=== PATIENT | male | born 1960 | race Caucasian/White ===

== ENCOUNTER 2021-10-24 16:22 | Emergency (ER) | payer MEDICARE, OTHER ==
[~2021-10-24] VITALS: Ht 175.3 cm; Wt 108.4 kg
[~2021-10-24 16:22] MED LIST: ASPIRIN CHEW81 MG PO; ASPIRIN ENTERI325 MG PO; GLIMEPIRIDE2 MG PO; HYDROCODON-ACE1 EA11 PO; JANUVIA100 MG PO; KEFLEX250 MG PO; LASIX40 MG PO; LISINOPRIL10 MG PO; LOVASTATIN10 MG PO; LOVASTATIN40 MG PO; METFORMIN HCL500 MG PO; POTASSIUM CHLO10 ME1 PO; SERTRALINE HCL50 MG PO; ULTRAM50 MG PO; WARFARIN SODIUM1 MG PO
[2021-10-24] MEDS ORDERED: TRAZODONE HCL100 MG PO (17:57)
[2021-10-24] MEDS ORDERED: HYDROCODONE/APAP 5MG-325MG TAB PO ONE (22:15)
[2021-10-24] MEDS ORDERED: HYDROCODONE/APAP 5MG-325MG TAB ONE (22:18)
[2021-10-24] MEDS ORDERED: HYDROCODON-ACE1 EAC9 PO (22:36)
== END 2021-10-24 22:54 | disposition home or self-care (01) ==
LOC: FSED 16:51
DX: S82.144A Nondisplaced bicondylar fracture of right tibia, initial encounter for closed fracture (principal); W01.0XXA Fall on same level from slipping, tripping and stumbling without subsequent striking against object, initial encounter; Y93.01 Activity, walking, marching and hiking; Y92.007 Garden or yard of unspecified non-institutional (private) residence as the place of occurrence of the external cause; I10 Essential (primary) hypertension; E11.9 Type 2 diabetes mellitus without complications; E78.5 Hyperlipidemia, unspecified; K21.9 Gastro-esophageal reflux disease without esophagitis; F41.9 Anxiety disorder, unspecified; G40.909 Epilepsy, unspecified, not intractable, without status epilepticus; Z86.14 Personal history of Methicillin resistant Staphylococcus aureus infection
CPT/HCPCS: 99284

== ENCOUNTER → 2022-02-03 | Outpatient (RCR) | payer MEDICARE ==
[~2022-02-03] MED LIST changes: +HYDROCODON-ACE1 EAC9 PO; +TRAZODONE HCL100 MG PO
== END ==
LOC: PT 12:25
PROVIDERS: ATTEND Orthopaedic Surgery
DX: S82.292A Other fracture of shaft of left tibia, initial encounter for closed fracture (principal)

== ENCOUNTER → 2022-03-05 | Outpatient (RCR) | payer MEDICARE | LOC: PT 02-05 12:47 | PROVIDERS: ATTEND Orthopaedic Surgery | DX: S82.292A Other fracture of shaft of left tibia, initial encounter for closed fracture (principal) | CPT/HCPCS: 97139 ==

== ENCOUNTER 2022-03-19 12:53 | Outpatient (RCR) | payer MEDICARE | END 2022-04-05 | LOC: PT 12:53 | PROVIDERS: ATTEND Orthopaedic Surgery | DX: S82.192A Other fracture of upper end of left tibia, initial encounter for closed fracture (principal) ==

== ENCOUNTER 2025-01-12 18:23 | Inpatient (IN) | payer BC, MEDICARE ==
[~2025-01-12] VITALS: Ht 175.3 cm; Wt 99.0 kg
[2025-01-12] MEDS ORDERED: CEPHALEXIN500 MG PO (18:41)
[2025-01-12] MEDS ORDERED: FARXIGA10 MG (18:41)
[2025-01-12] MEDS ORDERED: BENICAR5 MG PO (18:41)
[2025-01-12] MEDS ORDERED: LOPID600 MG PO (18:41)
[2025-01-12] MEDS: SODIUM CHLORIDE 0.9% 500ML 500 ML IV STA (19:06)
[2025-01-12] MEDS: Vancomycin IV 1 GM in SODIUM CHLORIDE 0.9% 250ML 250 ML IV ONE (19:07)
[2025-01-12 19:47] LABS: BASOPHILS % 0.2 % (0.0-1.0); EOSINOPHILS # (AUTO) 0.1 (0.0-0.4); EOSINOPHILS % 1.2 % (0.0-6.0); HEMATOCRIT 38.9 % (38.2-49.6); HEMOGLOBIN 12.7 g/dL (14.0-18.0); LYMPHOCYTES # (AUTO) 0.8 (1.0-3.2); LYMPHOCYTES % 8.2 % (18.0-39.1); MEAN CORPUSCULAR HEMOGLOBIN 29.3 pg (28-32); MEAN CORPUSCULAR HGB CONC 32.6 g/dL (31-35); MEAN CORPUSCULAR VOLUME 89.8 fL (81-99); MONOCYTES # (AUTO) 1.2 (0.2-0.8); MONOCYTES % 11.7 % (4.4-11.3); NEUTROPHILS % 78.1 % (38.7-80.0); PLATELET COUNT 185 x10e3/uL (140-360); RED BLOOD COUNT 4.33 x10e6/uL (4.3-5.7); RED CELL DISTRIBUTION WIDTH 13.1 % (11.7-14.4); WHITE BLOOD COUNT 10.21 x10e3/uL (4.8-10.8)
[2025-01-12 20:05] LABS: ALBUMIN 2.8 g/dL (3.5-5.0); ALBUMIN/GLOBULIN RATIO 0.6 (0.8-2.0); ANION GAP 25.1 mmol/L (8-16); BILIRUBIN,TOTAL 0.8 mg/dL (0.2-1.2); CALCIUM 9.4 mg/dL (8.4-10.2); CREATININE, SERUM 1.95 mg/dL (0.72-1.25); POTASSIUM 5.1 mmol/L (3.5-5.1); TOTAL PROTEIN 7.4 g/dL (6.5-8.1)
[2025-01-12] MEDS: INSULIN REGULAR, HUMAN 100 UNIT/1 ML IV ONE (20:54)
[2025-01-12] MEDS: SODIUM CHLORIDE 0.9% 1000ML 1,000 ML IV STA (20:55)
[2025-01-12 20:58] VITALS: TEMP 98.3
[2025-01-12] MEDS ORDERED: CLONIDINE HCL 0.2 MG TAB PO PRN (22:45)
[2025-01-12] MEDS ORDERED: HYDRALAZINE HCL 20 MG/ML VIAL IV PRN (22:45)
[2025-01-12] MEDS ORDERED: DEXTROSE 50% SYRINGE 50 ML IV PRN (22:45)
[2025-01-12] MEDS ORDERED: DIPHENHYDRAMINE HCL INJ 50 MG/ML VIAL IV PRN (22:45)
[2025-01-12] MEDS ORDERED: ONDANSETRON HCL INJ 2MG/ML 2ML 2 MG/ML VIAL IV PRN (22:45)
[2025-01-12] MEDS ORDERED: ZOLPIDEM TARTRATE 5 MG TAB PO PRN (22:45)
[2025-01-12 22:56] VITALS: PULSE 89; RESP 18
[2025-01-13] VITALS (11 sets, daily range): BP systolic 103–144; BP diastolic 58–79; PULSE 81–92; RESP 16–20; TEMP 97.6–98.8; O2SAT 94–100
[2025-01-13] MEDS: SODIUM CHLORIDE 0.45% 1,000 ML IV SCH (00:55)
[2025-01-13] MEDS ORDERED: TIZANIDINE HCL4 M1 PO (04:23)
[2025-01-13] MEDS ORDERED: Vancomycin IV 1 GM in SODIUM CHLORIDE 0.9% 250ML 250 ML IV SCH (05:00)
[2025-01-13 06:41] LABS: BASOPHILS % 0.4 % (0.0-1.0); EOSINOPHILS # (AUTO) 0.1 (0.0-0.4); EOSINOPHILS % 1.5 % (0.0-6.0); HEMATOCRIT 33.2 % (38.2-49.6); HEMOGLOBIN 10.8 g/dL (14.0-18.0); LYMPHOCYTES # (AUTO) 1.1 (1.0-3.2); LYMPHOCYTES % 14.2 % (18.0-39.1); MEAN CORPUSCULAR HEMOGLOBIN 29.5 pg (28-32); MEAN CORPUSCULAR HGB CONC 32.5 g/dL (31-35); MEAN CORPUSCULAR VOLUME 90.7 fL (81-99); MONOCYTES # (AUTO) 0.8 (0.2-0.8); MONOCYTES % 10.3 % (4.4-11.3); NEUTROPHILS # (AUTO) 5.5 (2.1-6.9); NEUTROPHILS % 72.8 % (38.7-80.0); PLATELET COUNT 139 x10e3/uL (140-360); RED BLOOD COUNT 3.66 x10e6/uL (4.3-5.7); RED CELL DISTRIBUTION WIDTH 13.2 % (11.7-14.4); WHITE BLOOD COUNT 7.58 x10e3/uL (4.8-10.8)
[2025-01-13] MEDS ORDERED: ALBUTEROL/IPRATROPIUM 3 ML NEB NEB PRN (07:30)
[2025-01-13] MEDS ORDERED: MELATONIN 3 MG TAB PO PRN (07:30)
[2025-01-13] MEDS ORDERED: FAMOTIDINE 20 MG TAB PO SCH (07:30)
[2025-01-13] MEDS ORDERED: METOPROLOL TARTRATE INJ 1 MG/ML VIAL IV PRN (07:30)
[2025-01-13 07:33] LABS: ANION GAP 19.9 mmol/L (8-16); CALCIUM 8.5 mg/dL (8.4-10.2); CREATININE, SERUM 1.72 mg/dL (0.72-1.25); POTASSIUM 4.9 mmol/L (3.5-5.1)
[2025-01-13] MEDS: INSULIN REGULAR, HUMAN 100 UNIT/1 ML SQ SCH (08:04)
[2025-01-13] MEDS: SERTRALINE HCL 100 MG TAB PO SCH (08:05)
[2025-01-13] MEDS: FAMOTIDINE 20 MG TAB PO ONE (08:05)
[2025-01-13] MEDS: Vancomycin IV 1 GM in SODIUM CHLORIDE 0.9% 250ML 250 ML IV SCH ×2 (08:05→19:45)
[2025-01-13] MEDS ORDERED: ENOXAPARIN 30 MG/0.3 ML SYR SC SCH (09:00)
[2025-01-13] MEDS: ENOXAPARIN 30 MG/0.3 ML SYR SC SCH (17:06)
[2025-01-13] MEDS: SIMVASTATIN 40 MG TAB PO SCH (19:46)
[2025-01-13] MEDS: ACETAMINOPHEN 325 MG TAB PO PRN (22:56)
[2025-01-14] VITALS (13 sets, daily range): BP systolic 105–129; BP diastolic 58–79; PULSE 69–88; RESP 17–18; TEMP 97.2–100.3; O2SAT 94–100
[2025-01-14 07:23] LABS: BASOPHILS % 0.3 % (0.0-1.0); EOSINOPHILS # (AUTO) 0.1 (0.0-0.4); EOSINOPHILS % 2.3 % (0.0-6.0); HEMATOCRIT 36.7 % (38.2-49.6); HEMOGLOBIN 11.7 g/dL (14.0-18.0); LYMPHOCYTES % 15.9 % (18.0-39.1); MEAN CORPUSCULAR HEMOGLOBIN 29.2 pg (28-32); MEAN CORPUSCULAR HGB CONC 31.9 g/dL (31-35); MEAN CORPUSCULAR VOLUME 91.5 fL (81-99); MONOCYTES # (AUTO) 0.7 (0.2-0.8); MONOCYTES % 12.4 % (4.4-11.3); NEUTROPHILS # (AUTO) 4.1 (2.1-6.9); NEUTROPHILS % 68.4 % (38.7-80.0); PLATELET COUNT 140 x10e3/uL (140-360); RED BLOOD COUNT 4.01 x10e6/uL (4.3-5.7); WHITE BLOOD COUNT 5.96 x10e3/uL (4.8-10.8)
[2025-01-14 07:36] LABS: ANION GAP 15.8 mmol/L (8-16); CALCIUM 8.6 mg/dL (8.4-10.2); CREATININE, SERUM 1.31 mg/dL (0.72-1.25); POTASSIUM 3.8 mmol/L (3.5-5.1)
[2025-01-14] MEDS: FAMOTIDINE 20 MG TAB PO SCH ×2 (08:05→16:12)
[2025-01-14] MEDS ORDERED: HYDROCODONE/APAP 10MG-325MG TAB PO PRN (15:30)
[2025-01-14] MEDS: INSULIN REGULAR, HUMAN 100 UNIT/1 ML SQ SCH ×2 (16:10→16:12)
[2025-01-14] MEDS: GABAPENTIN 100 MG CAP PO SCH (21:07)
[2025-01-14] MEDS: INSULIN GLARGINE 100 UNITS/ML VIAL SQ SCH (21:48)
[2025-01-15] VITALS (11 sets, daily range): BP systolic 101–131; BP diastolic 48–77; PULSE 64–80; RESP 18–20; TEMP 97.9–102; O2SAT 80–99
[2025-01-15 05:22] LABS: BASOPHILS % 0.6 % (0.0-1.0); EOSINOPHILS # (AUTO) 0.1 (0.0-0.4); EOSINOPHILS % 2.6 % (0.0-6.0); HEMATOCRIT 35.3 % (38.2-49.6); HEMOGLOBIN 11.4 g/dL (14.0-18.0); LYMPHOCYTES # (AUTO) 1.1 (1.0-3.2); LYMPHOCYTES % 20.9 % (18.0-39.1); MEAN CORPUSCULAR HEMOGLOBIN 29.6 pg (28-32); MEAN CORPUSCULAR HGB CONC 32.3 g/dL (31-35); MEAN CORPUSCULAR VOLUME 91.7 fL (81-99); MONOCYTES # (AUTO) 0.7 (0.2-0.8); MONOCYTES % 12.9 % (4.4-11.3); NEUTROPHILS # (AUTO) 3.3 (2.1-6.9); NEUTROPHILS % 61.5 % (38.7-80.0); PLATELET COUNT 137 x10e3/uL (140-360); RED BLOOD COUNT 3.85 x10e6/uL (4.3-5.7); RED CELL DISTRIBUTION WIDTH 12.9 % (11.7-14.4); WHITE BLOOD COUNT 5.36 x10e3/uL (4.8-10.8)
[2025-01-15 06:08] LABS: ANION GAP 15.8 mmol/L (8-16); CALCIUM 8.7 mg/dL (8.4-10.2); CREATININE, SERUM 1.32 mg/dL (0.72-1.25); POTASSIUM 3.8 mmol/L (3.5-5.1)
[2025-01-15] MEDS: Vancomycin IV 1 GM in SODIUM CHLORIDE 0.9% 250ML 250 ML IV SCH (08:12)
[2025-01-15] MEDS ORDERED: LIDOCAINE HCL 2% LOCAL INJ 5 ML SDV VIAL INJ ONE (10:52)
[2025-01-15] MEDS ORDERED: FENTANYL CITRATE/PF 100MCG/2 ML INJ ONE (10:52)
[2025-01-15] MEDS ORDERED: PROPOFOL IV EMULSION 10 MG/ML 20 ML VIAL ONE (10:53)
[2025-01-15] MEDS ORDERED: ACETAMINOPHEN 1000 MG/100 ML 100 ML IV ONE (10:53)
[2025-01-15] MEDS ORDERED: SEVOFLURANE INHAL SOLN 250 ML PEN BTL ONE (10:53)
[2025-01-15] MEDS ORDERED: TIZANIDINE HCL 4 MG TAB PO PRN (11:00)
[2025-01-15] MEDS: INSULIN REGULAR, HUMAN 100 UNIT/1 ML SQ SCH (11:30)
[2025-01-15] MEDS ORDERED: FAMOTIDINE 20 MG/2 ML VIAL IV ONE (13:19)
[2025-01-15] MEDS ORDERED: ONDANSETRON HCL INJ 2MG/ML 2ML 2 MG/ML VIAL ONE (13:19)
[2025-01-15] MEDS: PIPERACILLIN/TAZOBACTAM 3.375 GM VIAL ONE (16:26)
[2025-01-15] MEDS: GEMFIBROZIL 600 MG TAB PO SCH (16:49)
[2025-01-15] MEDS: SERTRALINE HCL 100 MG TAB PO SCH (21:59)
[2025-01-15] MEDS: INSULIN GLARGINE 100 UNITS/ML VIAL SQ SCH (22:07)
[2025-01-16] VITALS (10 sets, daily range): BP systolic 101–124; BP diastolic 55–69; PULSE 65–73; RESP 18–20; TEMP 97–99.3; O2SAT 96–99
[2025-01-16 05:46] LABS: BASOPHILS % 0.5 % (0.0-1.0); EOSINOPHILS # (AUTO) 0.2 (0.0-0.4); EOSINOPHILS % 1.8 % (0.0-6.0); HEMATOCRIT 33.4 % (38.2-49.6); HEMOGLOBIN 10.6 g/dL (14.0-18.0); LYMPHOCYTES # (AUTO) 1.3 (1.0-3.2); LYMPHOCYTES % 15.1 % (18.0-39.1); MEAN CORPUSCULAR HEMOGLOBIN 29.2 pg (28-32); MEAN CORPUSCULAR HGB CONC 31.7 g/dL (31-35); MONOCYTES % 11.4 % (4.4-11.3); NEUTROPHILS % 69.9 % (38.7-80.0); PLATELET COUNT 142 x10e3/uL (140-360); RED BLOOD COUNT 3.63 x10e6/uL (4.3-5.7); RED CELL DISTRIBUTION WIDTH 12.9 % (11.7-14.4)
[2025-01-16 06:10] LABS: ANION GAP 14.5 mmol/L (8-16); CALCIUM 8.6 mg/dL (8.4-10.2); CREATININE, SERUM 1.21 mg/dL (0.72-1.25); POTASSIUM 3.5 mmol/L (3.5-5.1)
[2025-01-17] VITALS (11 sets, daily range): BP systolic 106–135; BP diastolic 57–83; PULSE 66–76; RESP 16–21; TEMP 98–98.7; O2SAT 96–100
[2025-01-17] MEDS: INSULIN REGULAR, HUMAN 100 UNIT/1 ML SQ SCH (16:33)
[2025-01-17 16:58] LABS: FREE T4 (FREE THYROXINE) 1.15 ng/dL (0.8-1.8); THYROID STIMULATING HORMONE 0.393 uIU/mL (0.350-4.940)
[2025-01-17] MEDS: INSULIN LISPRO 100 UNIT/1 ML 3ML VIAL SQ SCH (21:00)
[2025-01-18] VITALS (9 sets, daily range): BP systolic 112–148; BP diastolic 55–74; PULSE 63–85; RESP 18; TEMP 97.7–98.3; O2SAT 97–100
[2025-01-18] MEDS: FLUCONAZOLE 100 MG TAB PO ONE (13:03)
[2025-01-18] MEDS: FLUCONAZOLE 100 MG TAB PO SCH (13:09)
[2025-01-19] VITALS (11 sets, daily range): BP systolic 106–147; BP diastolic 54–82; PULSE 60–84; RESP 18; TEMP 97.4–98.4; O2SAT 96–100
[2025-01-19] MEDS ORDERED: HYDROCODONE/APAP 10MG-325MG TAB PO PRN (11:30)
[2025-01-19] MEDS: DOXYCYCLINE HYCLATE TABLET 100 MG TAB PO SCH ×2 (16:50→17:30)
[2025-01-19] MEDS: ENOXAPARIN 30 MG/0.3 ML SYR SC SCH (16:50)
[2025-01-19] MEDS: MUPIROCIN 2% OINT 22 GM TUBE TOP SCH (16:50)
[2025-01-19] MEDS: CEFTRIAXONE 2 GM in SODIUM CHLORIDE 0.9% 100 ML IV SCH (16:50)
[2025-01-19] MEDS ORDERED: ZOLPIDEM TARTRATE 5 MG TAB PO PRN (21:00)
[2025-01-20] VITALS (8 sets, daily range): BP systolic 109–140; BP diastolic 55–78; PULSE 65–87; RESP 18–20; TEMP 97.7–98.3; O2SAT 97–100
[2025-01-20 07:00] LABS: BASOPHILS % 0.4 % (0.0-1.0); EOSINOPHILS # (AUTO) 0.2 (0.0-0.4); HEMOGLOBIN 10.8 g/dL (14.0-18.0); LYMPHOCYTES # (AUTO) 1.2 (1.0-3.2); LYMPHOCYTES % 24.5 % (18.0-39.1); MEAN CORPUSCULAR HGB CONC 30.9 g/dL (31-35); MEAN CORPUSCULAR VOLUME 93.8 fL (81-99); MONOCYTES # (AUTO) 0.6 (0.2-0.8); MONOCYTES % 11.5 % (4.4-11.3); NEUTROPHILS % 58.4 % (38.7-80.0); PLATELET COUNT 116 x10e3/uL (140-360); RED BLOOD COUNT 3.73 x10e6/uL (4.3-5.7); RED CELL DISTRIBUTION WIDTH 13.3 % (11.7-14.4); WHITE BLOOD COUNT 5.06 x10e3/uL (4.8-10.8)
[2025-01-20 07:32] LABS: ANION GAP 14.7 mmol/L (8-16); CALCIUM 8.6 mg/dL (8.4-10.2); CREATININE, SERUM 1.06 mg/dL (0.72-1.25); POTASSIUM 3.7 mmol/L (3.5-5.1)
[2025-01-20] MEDS: FLUCONAZOLE 100 MG TAB PO SCH (08:57)
[2025-01-21] VITALS (8 sets, daily range): BP systolic 104–132; BP diastolic 59–76; PULSE 60–82; RESP 18–22; TEMP 98–98.7; O2SAT 98–99
[2025-01-22] VITALS (8 sets, daily range): BP systolic 110–139; BP diastolic 57–81; PULSE 66–74; RESP 17–20; TEMP 97.7–98.3; O2SAT 96–99
[2025-01-23] VITALS (8 sets, daily range): BP systolic 100–144; BP diastolic 60–82; PULSE 67–84; RESP 18; TEMP 97.5–98.2; O2SAT 96–100
[2025-01-23] MEDS ORDERED: DOXYCYCLINE HY100 MG PO (17:02)
[2025-01-23] MEDS ORDERED: DIFLUCAN100 MG PO (17:02)
[2025-01-23] MEDS ORDERED: NEURONTIN100 MG PO (17:03)
[2025-01-23] MEDS ORDERED: LANTUS 3ML100 UNITS/ SQ (17:06)
[2025-01-23] MEDS ORDERED: HUMULIN-R100 UNITS/ SQ (17:08)
[2025-01-23] MEDS ORDERED: INSULIN SYRINGES (17:10)
[2025-01-23] MEDS ORDERED: [UNRECOGNIZED DRUG - SUPPLY] (17:12)
[2025-01-23] MEDS ORDERED: ZANAFLEX4 MG PO (17:13)
== END 2025-01-23 17:35 | disposition home health service (06) | DRG 264 ==
LOC: FSED 18:27 → RAD HOLD 18:56 → ERHOLD 20:35 → MED/SURG2 23:45
PROVIDERS: ADMIT Internal Medicine; ATTEND Internal Medicine
PROC: 3E0333Z Introduction of Anti-inflammatory into Peripheral Vein, Percutaneous Approach (ICD-10-PCS; 2025-01-12)
PROC: 0KBW0ZZ Excision of Left Foot Muscle, Open Approach (ICD-10-PCS; principal; 2025-01-15 12:30)
PROC: 02HV33Z Insertion of Infusion Device into Superior Vena Cava, Percutaneous Approach (ICD-10-PCS; 2025-01-19)
DX: E11.52 Type 2 diabetes mellitus with diabetic peripheral angiopathy with gangrene (principal); L97.528 Non-pressure chronic ulcer of other part of left foot with other specified severity; L02.612 Cutaneous abscess of left foot; N17.9 Acute kidney failure, unspecified; L03.116 Cellulitis of left lower limb; E87.1 Hypo-osmolality and hyponatremia; M86.172 Other acute osteomyelitis, left ankle and foot; E11.621 Type 2 diabetes mellitus with foot ulcer; B96.1 Klebsiella pneumoniae [K. pneumoniae] as the cause of diseases classified elsewhere; B37.9 Candidiasis, unspecified; E11.22 Type 2 diabetes mellitus with diabetic chronic kidney disease; E11.42 Type 2 diabetes mellitus with diabetic polyneuropathy; E11.65 Type 2 diabetes mellitus with hyperglycemia; E11.69 Type 2 diabetes mellitus with other specified complication; I12.9 Hypertensive chronic kidney disease with stage 1 through stage 4 chronic kidney disease, or unspecified chronic kidney disease; I25.10 Atherosclerotic heart disease of native coronary artery without angina pectoris; E78.5 Hyperlipidemia, unspecified; N18.9 Chronic kidney disease, unspecified; M14.672 Charcot's joint, left ankle and foot; E66.9 Obesity, unspecified; Z68.32 Body mass index [BMI] 32.0-32.9, adult; K21.9 Gastro-esophageal reflux disease without esophagitis; F41.9 Anxiety disorder, unspecified; F32.A Depression, unspecified; Z79.01 Long term (current) use of anticoagulants; Z79.84 Long term (current) use of oral hypoglycemic drugs; Z79.82 Long term (current) use of aspirin; Z86.73 Personal history of transient ischemic attack (TIA), and cerebral infarction without residual deficits; Z86.718 Personal history of other venous thrombosis and embolism; Z88.8 Allergy status to other drugs, medicaments and biological substances; Z88.1 Allergy status to other antibiotic agents
CPT/HCPCS: 36415; 36569; 71045; 80048; 80053; 80202; 82948; 83036; 83605; 84439; 84443; 85025; 86140; 87040; 87071; 87075; 87186; 87205; 93005; 93925; 93970; 94799; 99252; 99284; J0696; J1308; J1650; J1815; J2003; J2405; J2543; J7030; J7040; J7050

== ENCOUNTER 2025-02-01 14:57 | Outpatient (RCR) | payer MEDICARE ==
[~2025-02-01 14:57] MED LIST changes: +BENICAR5 MG PO; +CEPHALEXIN500 MG PO; +DIFLUCAN100 MG PO; +DOXYCYCLINE HY100 MG PO; +FARXIGA10 MG; +HUMULIN-R100 UNITS/ SQ; +INSULIN SYRINGES; +LANTUS 3ML100 UNITS/ SQ; +LOPID600 MG PO; +NEURONTIN100 MG PO; +TIZANIDINE HCL4 M1 PO; +ZANAFLEX4 MG PO; +[UNRECOGNIZED DRUG - SUPPLY]
== END 2025-02-03 ==
LOC: WCC 14:57
PROVIDERS: ATTEND Internal Medicine Infectious Disease
DX: E11.621 Type 2 diabetes mellitus with foot ulcer (principal); L03.116 Cellulitis of left lower limb; L97.424 Non-pressure chronic ulcer of left heel and midfoot with necrosis of bone; B96.1 Klebsiella pneumoniae [K. pneumoniae] as the cause of diseases classified elsewhere
CPT/HCPCS: 36415; 82948

== ENCOUNTER 2025-04-20 21:52 | Emergency (ER) | payer MEDICARE ==
[~2025-04-20] VITALS: Ht 175.3 cm; Wt 103.9 kg
[2025-04-20 22:00] VITALS: PULSE 94; RESP 19; TEMP 99.5; O2SAT 97
[2025-04-20] MEDS: ACETAMINOPHEN 325 MG TAB PO ONE (22:38)
[2025-04-20] MEDS: SODIUM CHLORIDE 0.9% 1000ML 1,000 ML IV ONE (23:49)
[2025-04-21] MEDS ORDERED: CEPHALEXIN500 MG PO (00:17)
[2025-04-21] MEDS ORDERED: SULFAMETHOXAZO1 EACH PO (00:18)
[2025-04-21 00:35] VITALS: BP 111/59; PULSE 89; RESP 16; TEMP 98.9
== END 2025-04-21 00:45 | disposition home or self-care (01) ==
LOC: FSED 22:11
DX: L03.116 Cellulitis of left lower limb (principal); E11.65 Type 2 diabetes mellitus with hyperglycemia; R94.4 Abnormal results of kidney function studies; E78.5 Hyperlipidemia, unspecified; Z11.52 Encounter for screening for COVID-19; Z86.14 Personal history of Methicillin resistant Staphylococcus aureus infection
CPT/HCPCS: 0223U; 80053; 81003; 85025; 87400; 99284; J0696; J7030

== ENCOUNTER 2025-05-28 08:31 | Inpatient (IN) | payer MEDICARE ==
[~2025-05-28] VITALS: Ht 175.3 cm; Wt 103.4 kg
[~2025-05-28 08:31] MED LIST changes: +SULFAMETHOXAZO1 EACH PO
[2025-05-28 08:35] VITALS: TEMP 98.7
[2025-05-28] MEDS: PIPERACILLIN/TAZOBACTAM 4.5 GM in SODIUM CHLORIDE 0.9% 100 ML IV SCH (09:57)
[2025-05-28] MEDS: SODIUM CHLORIDE 0.9% 1000ML 1,000 ML IV ONE ×2 (09:57→12:01)
[2025-05-28] MEDS: ONDANSETRON HCL INJ 2MG/ML 2ML 2 MG/ML VIAL IV STA (09:59)
[2025-05-28] MEDS: Vancomycin IV 1 GM in SODIUM CHLORIDE 0.9% 250ML 250 ML IV SCH (09:59)
[2025-05-28 10:05] LABS: BASOPHILS % 0.6 % (0.0-1.0); EOSINOPHILS % 2.1 % (0.0-6.0); LYMPHOCYTES % 20.6 % (18.0-39.1); MONOCYTES % 9.8 % (4.4-11.3); NEUTROPHILS % 66.6 % (38.7-80.0); RED CELL DISTRIBUTION WIDTH 13.7 % (11.7-14.4)
[2025-05-28 11:00] LABS: INR 1.31
[2025-05-28 11:07] LABS: EST GLOMERULAR FILTRATION RATE 49.0 ML/MIN (>=60)
[2025-05-28] MEDS ORDERED: ONDANSETRON HCL INJ 2MG/ML 2ML 2 MG/ML VIAL IV PRN (12:00)
[2025-05-28 12:30] VITALS: PULSE 88; RESP 17
[2025-05-28 13:15] VITALS: BP 126/66; PULSE 81; RESP 20; TEMP 97.9; O2SAT 97
[2025-05-28 13:52] VITALS: BP 126/66; PULSE 81; RESP 20; TEMP 97.9; O2SAT 97
[2025-05-28 15:59] VITALS: BP 112/61; PULSE 87; RESP 19; TEMP 98.1; O2SAT 97
[2025-05-28] MEDS ORDERED: ACETAMINOPHEN 325 MG TAB PO PRN (17:00)
[2025-05-28] MEDS ORDERED: HYDRALAZINE HCL 20 MG/ML VIAL IV PRN (17:00)
[2025-05-28] MEDS ORDERED: ALBUTEROL/IPRATROPIUM 3 ML NEB NEB PRN (17:00)
[2025-05-28] MEDS ORDERED: DIPHENHYDRAMINE HCL 25 MG CAP PO PRN (17:00)
[2025-05-28] MEDS ORDERED: HYDROCODONE/APAP 5MG-325MG TAB PO PRN (17:00)
[2025-05-28] MEDS ORDERED: Morphine 4mg INJECTION 4 MG/ML INJ IV PRN (17:00)
[2025-05-28] MEDS ORDERED: DEXTROSE 50% SYRINGE 50 ML IV PRN (17:00)
[2025-05-28] MEDS ORDERED: POTASSIUM CHLORIDE 20 MEQ TAB CR PO PRN (17:00)
[2025-05-28] MEDS: SODIUM CHLORIDE 0.9% 1000ML 1,000 ML IV SCH (18:21)
[2025-05-28] MEDS: ENOXAPARIN SOD INJ 40 MG/0.4 ML SYR SC SCH (18:22)
[2025-05-28 20:00] VITALS: BP 106/55; PULSE 76; RESP 20; TEMP 98.2; O2SAT 98
[2025-05-28] MEDS: ALPRAZOLAM 0.5 MG TAB PO PRN (23:58)
[2025-05-29] VITALS (9 sets, daily range): BP systolic 110–132; BP diastolic 57–75; PULSE 69–74; RESP 16–20; TEMP 97.8–98.6; O2SAT 95–100
[2025-05-29] MEDS: MELATONIN 5 MG TABLET PO PRN (00:05)
[2025-05-29 05:53] LABS: BASOPHILS % 0.5 % (0.0-1.0); EOSINOPHILS % 2.2 % (0.0-6.0); LYMPHOCYTES % 20.6 % (18.0-39.1); MONOCYTES % 9.0 % (4.4-11.3); NEUTROPHILS % 67.2 % (38.7-80.0); RED CELL DISTRIBUTION WIDTH 13.7 % (11.7-14.4)
[2025-05-29 06:17] LABS: INR 1.23
[2025-05-29 06:28] LABS: EST GLOMERULAR FILTRATION RATE 53.0 ML/MIN (>=60)
[2025-05-29 06:47] LABS: CHOL/HDL RATIO 4.8 (3.9-4.7); LDL CHOLESTEROL 63.0 MG/DL (60-130); PHOSPHORUS 3.8 MG/DL (2.3-4.7)
[2025-05-29] MEDS ORDERED: TIZANIDINE HCL 4 MG TAB PO SCH (09:00)
[2025-05-29] MEDS: PANTOPRAZOLE SOD 40 MG TABEC PO SCH (09:06)
[2025-05-29] MEDS ORDERED: GADOBENATE DIMEGLUMINE 1 ML IV ONE (14:43)
[2025-05-29] MEDS: GEMFIBROZIL 600 MG TAB PO SCH (16:30)
[2025-05-29] MEDS: INSULIN GLARGINE 100 UNITS/ML VIAL SQ SCH (21:00)
[2025-05-29] MEDS ORDERED: SIMVASTATIN 20 MG TAB PO SCH (21:00)
[2025-05-30] VITALS (10 sets, daily range): BP systolic 121–150; BP diastolic 69–87; PULSE 57–82; RESP 16–19; TEMP 97.3–98.4; O2SAT 96–100
[2025-05-30] MEDS: VANCOMYCIN HCL 1.25 GM in SODIUM CHLORIDE 0.9% 250ML 250 ML IV SCH (04:26)
[2025-05-30] MEDS: SERTRALINE HCL 50 MG TAB PO SCH (09:00)
[2025-05-30] MEDS: OLMESARTAN MEDOXOMIL 5 MG TABLET PO SCH (09:00)
[2025-05-30] MEDS ORDERED: ALPRAZOLAM 0.5 MG TAB PO PRN (22:45)
[2025-05-30] MEDS: ALPRAZOLAM 0.5 MG PO PRN (23:12)
[2025-05-30] MEDS: ALPRAZOLAM 0.5 MG TAB PO PRN (23:12)
[2025-05-31] VITALS (10 sets, daily range): BP systolic 111–149; BP diastolic 55–79; PULSE 60–87; RESP 17–20; TEMP 97.4–98.6; O2SAT 96–100
[2025-05-31] MEDS: DEXTROSE 5%/0.45% SOD CHL 1,000 ML IV SCH (09:03)
[2025-05-31] MEDS ORDERED: PROPOFOL IV EMULSION 10 MG/ML 20 ML VIAL ONE ×2 (12:35→13:17)
[2025-05-31] MEDS ORDERED: LIDOCAINE HCL 2% LOCAL INJ 5 ML SDV VIAL INJ ONE (12:36)
[2025-05-31] MEDS ORDERED: FENTANYL CITRATE/PF 100MCG/2 ML INJ ONE (12:37)
[2025-05-31] MEDS ORDERED: MIDAZOLAM HCL 2 MG/2 ML VIAL ONE (12:37)
[2025-05-31] MEDS ORDERED: SEVOFLURANE INHAL SOLN 250 ML PEN BTL ONE (12:37)
[2025-05-31] MEDS ORDERED: ONDANSETRON HCL INJ 2MG/ML 2ML 2 MG/ML VIAL ONE (13:28)
[2025-05-31] MEDS ORDERED: DEXAMETHASONE SOD PHOS INJ 4 MG/ML SDV ONE (13:28)
[2025-05-31] MEDS: SODIUM CHLORIDE FLUSH 10 ML SYR INJ PRN (18:05)
[2025-06-01] VITALS (12 sets, daily range): BP systolic 91–138; BP diastolic 52–75; PULSE 64–79; RESP 18–20; TEMP 97.1–99.3; O2SAT 96–100
[2025-06-01 06:52] LABS: EST GLOMERULAR FILTRATION RATE 50.0 ML/MIN (>=60)
[2025-06-01 13:17] LABS: BASOPHILS % 0.5 % (0.0-1.0); EOSINOPHILS % 1.9 % (0.0-6.0); LYMPHOCYTES % 19.8 % (18.0-39.1); MONOCYTES % 11.5 % (4.4-11.3); NEUTROPHILS % 66.0 % (38.7-80.0); RED CELL DISTRIBUTION WIDTH 13.9 % (11.7-14.4)
[2025-06-02] VITALS (7 sets, daily range): BP systolic 117–143; BP diastolic 65–72; PULSE 61–72; RESP 18; TEMP 97.5–98.8; O2SAT 96–100
[2025-06-02 05:43] LABS: BASOPHILS % 0.5 % (0.0-1.0); EOSINOPHILS % 2.7 % (0.0-6.0); LYMPHOCYTES % 25.1 % (18.0-39.1); MONOCYTES % 10.5 % (4.4-11.3); NEUTROPHILS % 60.7 % (38.7-80.0); RED CELL DISTRIBUTION WIDTH 14.2 % (11.7-14.4)
[2025-06-02 07:20] LABS: EST GLOMERULAR FILTRATION RATE 51.0 ML/MIN (>=60)
[2025-06-03] VITALS (10 sets, daily range): BP systolic 117–143; BP diastolic 46–73; PULSE 66–88; RESP 18–21; TEMP 97.6–98.7; O2SAT 96–100
[2025-06-03] MEDS ORDERED: Vancomycin IV 1 GM in SODIUM CHLORIDE 0.9% 250ML 250 ML IV SCH (06:00)
[2025-06-04 04:00] VITALS: BP 130/79; PULSE 67; RESP 18; TEMP 97.9; O2SAT 97
[2025-06-04 07:53] VITALS: BP 132/72; PULSE 67; RESP 18; TEMP 97.4; O2SAT 99
[2025-06-04 08:45] VITALS: BP 132/72; PULSE 67; RESP 18; TEMP 97.4; O2SAT 99
[2025-06-04 12:35] LABS: BASOPHILS % 0.6 % (0.0-1.0); EOSINOPHILS % 2.8 % (0.0-6.0); LYMPHOCYTES % 22.0 % (18.0-39.1); MONOCYTES % 8.5 % (4.4-11.3); NEUTROPHILS % 65.5 % (38.7-80.0); RED CELL DISTRIBUTION WIDTH 14.4 % (11.7-14.4)
[2025-06-04 12:56] VITALS: BP 139/70; PULSE 83; RESP 18; TEMP 98.5; O2SAT 100
[2025-06-04 13:01] LABS: EST GLOMERULAR FILTRATION RATE 56.0 ML/MIN (>=60)
[2025-06-04 20:00] VITALS: BP 148/71; PULSE 76; RESP 19; TEMP 98.1; O2SAT 98
[2025-06-04 20:20] VITALS: PULSE 76; RESP 18; O2SAT 98
[2025-06-05] VITALS (10 sets, daily range): BP systolic 107–155; BP diastolic 50–74; PULSE 64–75; RESP 16–19; TEMP 97.2–98.5; O2SAT 97–99
[2025-06-05] MEDS: ONDANSETRON HCL 4 MG ORAL DISINTEGRATING TAB PO PRN (17:19)
[2025-06-05] MEDS: SIMETHICONE 80 MG CHEW PO PRN (21:58)
[2025-06-06] VITALS (9 sets, daily range): BP systolic 142–153; BP diastolic 58–78; PULSE 70–90; RESP 16–20; TEMP 97.1–98.7; O2SAT 95–100
[2025-06-06] MEDS: MAGNESIUM/ALUMINUM/SIMETHICONE 30 ML UDC PO PRN (00:24)
[2025-06-06] MEDS: SUCRALFATE 1 GM/10 ML SUSP PO PRN (00:24)
[2025-06-06] MEDS: DOCUSATE SODIUM 100 MG CAP PO PRN (06:05)
[2025-06-06 07:15] LABS: EST GLOMERULAR FILTRATION RATE 32.0 ML/MIN (>=60)
[2025-06-06] MEDS: SODIUM CHLORIDE 0.9% 1000ML 1,000 ML IV SCH (12:22)
[2025-06-06] MEDS: POLYETHYLENE GLYCOL 3350 17 GM PACK PO PRN (12:22)
[2025-06-06] MEDS ORDERED: DEXTROSE 50% SYRINGE 50 ML IV PRN (14:15)
[2025-06-06] MEDS: INSULIN LISPRO 100 UNIT/1 ML 3ML VIAL SQ SCH (17:12)
[2025-06-06] MEDS: DOCUSATE SODIUM 100 MG CAP PO ONE (17:17)
[2025-06-06] MEDS: LACTULOSE SYRUP 20 GM/30 ML UDC PO SCH (17:17)
[2025-06-07] VITALS (9 sets, daily range): BP systolic 104–160; BP diastolic 60–97; PULSE 70–94; RESP 18–21; TEMP 97.3–99; O2SAT 98–100
[2025-06-07 06:33] LABS: BASOPHILS % 0.3 % (0.0-1.0); EOSINOPHILS % 2.2 % (0.0-6.0); LYMPHOCYTES % 12.5 % (18.0-39.1); MONOCYTES % 7.2 % (4.4-11.3); NEUTROPHILS % 77.3 % (38.7-80.0); RED CELL DISTRIBUTION WIDTH 14.9 % (11.7-14.4)
[2025-06-07 07:19] LABS: EST GLOMERULAR FILTRATION RATE 17.0 ML/MIN (>=60)
[2025-06-08] VITALS (8 sets, daily range): BP systolic 145–160; BP diastolic 58–89; PULSE 77–101; RESP 17–18; TEMP 97.6–99.2; O2SAT 96–100
[2025-06-08 06:57] LABS: BASOPHILS % 0.6 % (0.0-1.0); EOSINOPHILS % 3.2 % (0.0-6.0); LYMPHOCYTES % 12.9 % (18.0-39.1); MONOCYTES % 10.3 % (4.4-11.3); NEUTROPHILS % 72.2 % (38.7-80.0); RED CELL DISTRIBUTION WIDTH 14.9 % (11.7-14.4)
[2025-06-08 07:20] LABS: EST GLOMERULAR FILTRATION RATE 14.0 ML/MIN (>=60)
[2025-06-08] MEDS: PREDNISONE 20 MG TAB PO ONE (17:51)
[2025-06-08 21:25] LABS: LEUKOCYTE ESTERASE ,URINE NEGATIVE (NEGATIVE); PROTEIN,URINE DIPSTICK NEGATIVE (NEGATIVE); URINE UROBILINOGEN 0.2 mg/dL (0.2 - 1)
[2025-06-08 21:50] LABS: EOSINOPHIL SMEAR,URINE NONE SEEN (NONE SEEN); EPITHELIAL CELLS,URINE FEW /LPF; WBC,URINE (MAN) 0-5 /HPF (0-5)
[2025-06-08 21:51] LABS: YEAST,URINE MANY
[2025-06-09] VITALS (8 sets, daily range): BP systolic 128–165; BP diastolic 61–81; PULSE 73–87; RESP 18–22; TEMP 97.7–98.5; O2SAT 95–100
[2025-06-09 07:02] LABS: EST GLOMERULAR FILTRATION RATE 12.0 ML/MIN (>=60)
[2025-06-09] MEDS: PREDNISONE 20 MG TAB PO SCH (09:08)
[2025-06-09] MEDS: SODIUM BICARBONATE IV SCH (14:22)
[2025-06-09] MEDS: SODIUM CHLORIDE IV SCH (14:22)
[2025-06-09] MEDS: HYDROMORPHONE 1MG/1ML INJ IV PRN (16:56)
[2025-06-09] MEDS ORDERED: ROCURONIUM BROMIDE 1 ML IV ONE (20:37)
[2025-06-09] MEDS ORDERED: FENTANYL CITRATE/PF 100MCG/2 ML INJ ONE (20:37)
[2025-06-09] MEDS ORDERED: LIDOCAINE HCL 2% LOCAL INJ 5 ML SDV VIAL INJ ONE (20:37)
[2025-06-09] MEDS ORDERED: SUCCINYLCHOLINE CHLORIDE 20 MG/ML 10ML VIAL ONE (20:37)
[2025-06-09] MEDS ORDERED: PROPOFOL IV EMULSION 10 MG/ML 20 ML VIAL ONE (20:38)
[2025-06-09] MEDS: TAMSULOSIN HCL 0.4 MG CAP PO SCH (21:16)
[2025-06-10] VITALS (9 sets, daily range): BP systolic 134–150; BP diastolic 62–84; PULSE 72–87; RESP 18–22; TEMP 97.8–98.5; O2SAT 95–100
[2025-06-10 06:58] LABS: BASOPHILS % 0.1 % (0.0-1.0); EOSINOPHILS % 0.4 % (0.0-6.0); LYMPHOCYTES % 16.3 % (18.0-39.1); MONOCYTES % 10.4 % (4.4-11.3); NEUTROPHILS % 72.5 % (38.7-80.0); RED CELL DISTRIBUTION WIDTH 14.8 % (11.7-14.4)
[2025-06-10] MEDS ORDERED: METOCLOPRAMIDE HCL 10 MG/2ML VIAL ONE (09:05)
[2025-06-10] MEDS ORDERED: KETOROLAC TROMETHAMINE 30 MG/ML VIAL ONE (09:05)
[2025-06-10] MEDS ORDERED: DEXAMETHASONE SOD PHOS INJ 4 MG/ML SDV ONE (09:05)
[2025-06-10] MEDS ORDERED: ONDANSETRON HCL INJ 2MG/ML 2ML 2 MG/ML VIAL ONE (09:05)
[2025-06-10] MEDS ORDERED: SUGAMMADEX SODIUM 200 MG/2 ML VIAL IV ONE (09:10)
[2025-06-10 17:34] LABS: EST GLOMERULAR FILTRATION RATE 16.0 ML/MIN (>=60)
[2025-06-10] MEDS: BENZONATATE 100 MG CAP PO PRN (21:01)
[2025-06-11] VITALS (10 sets, daily range): BP systolic 102–144; BP diastolic 50–66; PULSE 69–93; RESP 18–20; TEMP 97.7–98.5; O2SAT 96–100
[2025-06-11 06:52] LABS: BASOPHILS % 0.1 % (0.0-1.0); EOSINOPHILS % 0.6 % (0.0-6.0); LYMPHOCYTES % 23.0 % (18.0-39.1); MONOCYTES % 11.2 % (4.4-11.3); NEUTROPHILS % 64.7 % (38.7-80.0); RED CELL DISTRIBUTION WIDTH 15.1 % (11.7-14.4)
[2025-06-11 07:20] LABS: EST GLOMERULAR FILTRATION RATE 28.0 ML/MIN (>=60)
[2025-06-11] MEDS: LACTATED RINGER'S 1,000 ML INJ SCH (12:13)
[2025-06-12] VITALS (7 sets, daily range): BP systolic 126–157; BP diastolic 66–70; PULSE 75–86; RESP 17–18; TEMP 97.6–98.7; O2SAT 96–100
[2025-06-12 07:09] LABS: EST GLOMERULAR FILTRATION RATE 40.0 ML/MIN (>=60)
[2025-06-12] MEDS ORDERED: FLOMAX0.4 MG PO (14:10)
[2025-06-18 03:20] LABS: HEPATITIS A ANTIBODY IGM (P) Negative; HEPATITIS B CORE IGM (P) Negative; HEPATITIS B SURFACE AG (P) Negative
== END 2025-06-12 18:42 | disposition home or self-care (01) | DRG 629 ==
LOC: ER 08:42 → ERHOLD 12:00 → MED/SURG3 13:20
PROVIDERS: ADMIT Internal Medicine; ATTEND Internal Medicine
PROC: 0QUP0JZ Supplement Left Metatarsal with Synthetic Substitute, Open Approach (ICD-10-PCS; 2025-05-31)
PROC: 05HY33Z Insertion of Infusion Device into Upper Vein, Percutaneous Approach (ICD-10-PCS; 2025-05-31)
PROC: 0QBP0ZZ Excision of Left Metatarsal, Open Approach (ICD-10-PCS; principal; 2025-05-31 13:13)
PROC: 0T778DZ Dilation of Left Ureter with Intraluminal Device, Via Natural or Artificial Opening Endoscopic (ICD-10-PCS; 2025-06-10)
PROC: 0T768DZ Dilation of Right Ureter with Intraluminal Device, Via Natural or Artificial Opening Endoscopic (ICD-10-PCS; 2025-06-10)
PROC: BT141ZZ Fluoroscopy of Kidneys, Ureters and Bladder using Low Osmolar Contrast (ICD-10-PCS; 2025-06-10)
DX: E11.69 Type 2 diabetes mellitus with other specified complication (principal); A52.16 Charcot's arthropathy (tabetic); M86.9 Osteomyelitis, unspecified; N13.2 Hydronephrosis with renal and ureteral calculous obstruction; L03.116 Cellulitis of left lower limb; Z16.12 Extended spectrum beta lactamase (ESBL) resistance; D68.9 Coagulation defect, unspecified; B37.49 Other urogenital candidiasis; N13.8 Other obstructive and reflux uropathy; N17.0 Acute kidney failure with tubular necrosis; E83.51 Hypocalcemia; D69.6 Thrombocytopenia, unspecified; E78.5 Hyperlipidemia, unspecified; E66.01 Morbid (severe) obesity due to excess calories; E11.610 Type 2 diabetes mellitus with diabetic neuropathic arthropathy; E11.42 Type 2 diabetes mellitus with diabetic polyneuropathy; I12.9 Hypertensive chronic kidney disease with stage 1 through stage 4 chronic kidney disease, or unspecified chronic kidney disease; E11.22 Type 2 diabetes mellitus with diabetic chronic kidney disease; N18.9 Chronic kidney disease, unspecified; B95.61 Methicillin susceptible Staphylococcus aureus infection as the cause of diseases classified elsewhere; N18.30 Chronic kidney disease, stage 3 unspecified; D64.9 Anemia, unspecified; N50.0 Atrophy of testis; N40.1 Benign prostatic hyperplasia with lower urinary tract symptoms; N35.919 Unspecified urethral stricture, male, unspecified site; N32.89 Other specified disorders of bladder; R31.29 Other microscopic hematuria; E11.51 Type 2 diabetes mellitus with diabetic peripheral angiopathy without gangrene; K74.60 Unspecified cirrhosis of liver; G89.4 Chronic pain syndrome; R16.1 Splenomegaly, not elsewhere classified; A05.9 Bacterial foodborne intoxication, unspecified; Z79.4 Long term (current) use of insulin; Z86.14 Personal history of Methicillin resistant Staphylococcus aureus infection; Z88.1 Allergy status to other antibiotic agents; Z88.8 Allergy status to other drugs, medicaments and biological substances; Z83.3 Family history of diabetes mellitus; Z82.49 Family history of ischemic heart disease and other diseases of the circulatory system; Z68.33 Body mass index [BMI] 33.0-33.9, adult; Z91.199 Patient's noncompliance with other medical treatment and regimen due to unspecified reason
CPT/HCPCS: 36415; 36569; 71045; 74176; 74420; 76000; 76770; 80048; 80053; 80061; 80202; 81001; 81015; 82550; 82948; 83036; 83605; 83735; 84100; 84443; 85014; 85018; 85025; 85610; 85730; 86140; 87040; 87071; 87075; 87086; 87186; 87205; 88304; 88307; 88311; 93005; 93925; 93970; 94799; 96372; 99252; 99284; C1713; C1758; C1769; C2617; J0330; J1100; J1171; J1650; J1815; J1885; J2003; J2185; J2250; J2405; J2470; J2543; J2765; J3373; J7030; J7050; J7512; Q0162